=== PATIENT | female | born 1990 | race Caucasian/White ===

== ENCOUNTER → 2020-10-31 | Outpatient (CLI) | payer OTHER | END | disposition home or self-care (01) | LOC: LAB 15:18 | DX: J45.20 Mild intermittent asthma, uncomplicated (principal) ==

== ENCOUNTER 2023-02-09 18:01 | Emergency (ER) | payer OTHER ==
[~2023-02-09] VITALS: Ht 170.2 cm; Wt 70.8 kg
[~2023-02-09 18:01] MED LIST: ALBU90OI61 INH; BUDE200IP INH; BUPR100 PO; CEPH500 PO; CYCL10 PO; FLUO20 PO; HYDACE5 PO; HYDACE5325 PO; IBUP800 PO; INHALER; LABE100 PO; NAPR500 PO; NITR100CA PO; OXYACE5T PO; PHENA200 PO; PRED10 PO; PREN-16 PO; PROACE100 PO; PROM25 PO; RANI150 PO; RXPROACE PO; RXPROM25S PR; RXSULTRIDS PO; SULTRIDS PO; TRIA80TC TOP; Verotin-Gr Cap1 EACH PO
[2023-02-09 18:11] VITALS: BP 145/90
[2023-02-09] MEDS ORDERED: ALBU90OI INH (18:13)
[2023-02-09] MEDS ORDERED: Adderall 20 MG20 MG PO (18:14)
[2023-02-09] MEDS ORDERED: SERTRALINE HCL150 M1 PO (18:14)
== END 2023-02-09 20:57 | disposition home or self-care (01) ==
LOC: ER 18:01
DX: M25.531 Pain in right wrist (principal); I10 Essential (primary) hypertension; J45.909 Unspecified asthma, uncomplicated; F17.200 Nicotine dependence, unspecified, uncomplicated; Z79.899 Other long term (current) drug therapy
CPT/HCPCS: 29125; 73110; 96372-59; 99283-25; J1885

== ENCOUNTER → 2025-02-08 | Outpatient (CLI) | payer OTHER ==
[~2025-02-08] MED LIST changes: +ALBU90OI INH; +Adderall 20 MG20 MG PO; +SERTRALINE HCL150 M1 PO
== END ==
LOC: LAB SHORT 19:04 → LAB 19:04
DX: R30.0 Dysuria (principal)
CPT/HCPCS: 87086